=== PATIENT | female | born 1975 | race Caucasian/White ===

== ENCOUNTER 2017-11-07 08:42 | Emergency (ER) | payer SELFPAY ==
[~2017-11-07] VITALS: Ht 172.7 cm; Wt 66.0 kg
[2017-11-07 10:30] VITALS: BP 122/76
== END 2017-11-07 11:05 | disposition left against medical advice (07) ==
LOC: ER 09:11
DX: J45.909 Unspecified asthma, uncomplicated (principal); Z53.21 Procedure and treatment not carried out due to patient leaving prior to being seen by health care provider